=== PATIENT | male | born 1975 | race Caucasian/White ===

== ENCOUNTER 2018-08-01 12:53 | Emergency (ER) | payer OTHER ==
[~2018-08-01] VITALS: Ht 182.9 cm; Wt 74.0 kg
[2018-08-01 13:18] VITALS: BP 116/72
[2018-08-01] MEDS ORDERED: ZIPR80CA2 PO (15:19)
[2018-08-01] MEDS ORDERED: OLAN15TA3 PO (15:19)
== END 2018-08-01 15:34 | disposition home or self-care (01) ==
LOC: ER 12:54
DX: F25.9 Schizoaffective disorder, unspecified (principal); Z76.0 Encounter for issue of repeat prescription; Z79.899 Other long term (current) drug therapy
CPT/HCPCS: 99283

== ENCOUNTER 2018-09-26 09:26 | Emergency (ER) | payer OTHER ==
[~2018-09-26] VITALS: Ht 182.9 cm; Wt 72.0 kg
[~2018-09-26 09:26] MED LIST: OLAN15TA3 PO; ZIPR80CA2 PO
[2018-09-26 09:30] VITALS: BP 133/99
[2018-09-26] MEDS ORDERED: ZIPR80CA2 PO (09:42)
[2018-09-26] MEDS ORDERED: OLAN15TA3 PO (09:42)
--- NOTE | 2018-09-26 09:42 | NUR ---
NEEDS REFILL ON MEDICATIONS AND IS LIVING TEMPORARILY IN [place]. HAS BEEN UNABLE TO GET APPT WITH PRIMARY CARE PHYSICIAN. TAKES GEODON 160 MG AND ZYPREXA 15 MG DAILY AT HS.
== END 2018-09-26 10:00 | disposition home or self-care (01) ==
LOC: ER 09:26
DX: F25.9 Schizoaffective disorder, unspecified (principal); Z76.0 Encounter for issue of repeat prescription; Z79.899 Other long term (current) drug therapy
CPT/HCPCS: 99283